=== PATIENT | female | born 1945 ===

== ENCOUNTER 2023-09-18 05:12 | Day surgery (SDC) | payer OTHER ==
[2023-09-16 13:31] LABS: URINE APPEARANCE Clear; URINE BILIRRUBIN Negative (NEGATIVE); URINE BLOOD Negative; URINE COLOR Yellow; URINE GLUCOSE Negative (NEGATIVE); URINE LEUKOCYTE Negative; URINE NITRATE Negative; URINE PROTEIN Negative (NEGATIVE); URINE UROBILINOGEN 0.2 E.U./dl
[2023-09-16 13:35] LABS: URINE EPITHELIAL CELLS 2.2 uL (0.0-38.8); URINE RBC 3.5 uL (0.0-20.8)
[2023-09-16 13:39] LABS: HEMATOCRIT 40.5 % (36.0-45.00); HEMOGLOBIN 13.2 g/dL (12.0-15.00); MEAN CORPUSCULAR HEMOGLOBIN 27.7 pg (27.00-32.0); MEAN CORPUSCULAR HGB CONC 32.6 g/dl (32.0-36.0); PLATELET COUNT 237 K/uL (150-450); RED BLOOD COUNT 4.77 M/uL (4.00-6.00); RED CELL DISTRIBUTION WIDTH 13.1 % (11.5-14.5)
[2023-09-16 14:01] LABS: URINE BACTERIA 0 uL (0.0-1933); URINE WBC 0.3 uL (0.0-23.2)
[2023-09-16 14:06] LABS: ALBUMIN 4.2 gm/dL (3.4-5.0); BILIRUBIN TOTAL 0.5 mg/dL (0.3-1.2); BILIRUBIN,CONJUGATED 0.11 mg/dL (0.0-0.2); BILIRUBIN,UNCONJUGATED 0.39 mg/dL (0.0-0.6); CALCIUM 10.5 mg/dL (8.5-10.1); CREATININE SERUM 0.84 mg/dL (0.55-1.02); GFR 65.4; POTASSIUM 4.31 mEq/L (3.5-5.1); TOTAL PROTEIN 8.4 gm/dL (6.4-8.2)
[2023-09-16 14:08] LABS: INR 0.98; PARTIAL THROMBOPLASTIN TIME 26.5 SECONDS (22.0-34.0); PROTHROMBIN TIME 10.3 SECONDS (9.0-11.5)
[~2023-09-18] VITALS: Ht 165.1 cm; Wt 49.9 kg
[~2023-09-18 05:12] MED LIST: NEXIUM40 MG/PACK PO
[2023-09-18] MEDS ORDERED: PERCOCET 5-3251 EACH PO (10:03)
[2023-09-18] MEDS ORDERED: COLACE100 MG PO (10:04)
[2023-09-18] MEDS ORDERED: NEURONTIN300 MG PO (10:04)
[2023-09-18 12:23] LABS: ABG PH 7.363 (7.35-7.45); ABG PO2 372.4 mmHg (80-100); ABG pCO2 41.6 mmHg (35-45); BASE EXCESS -2.1 mmol/l; BICARBONATE 23.2 mmol/l (23-25); SaO2 99.9 %; Tco2 24.4 mmol/l
[2023-09-18 12:24] LABS: allen test SATISFACTORY; o2 100 %; puncture site RADIAL RIGHT
[2023-09-18 18:28] LABS: ABG PH 7.348 (7.35-7.45); ABG PO2 294.8 mmHg (80-100); ABG pCO2 48.3 mmHg (35-45); BASE EXCESS -0.3 mmol/l; SaO2 99.9 %
[2023-09-18 18:29] LABS: BICARBONATE 25.9 mmol/l (23-25); Tco2 27.4 mmol/l; allen test SATISFACTORY; o2 40 %; puncture site RADIAL RIGHT
== END 2023-09-18 18:15 | disposition home or self-care (01) ==
LOC: CIR.AMB 05:12
PROVIDERS: Anesthesiology Pain Medicine; ATTEND Surgery
DX: K40.20 Bilateral inguinal hernia, without obstruction or gangrene, not specified as recurrent (principal); Z88.6 Allergy status to analgesic agent; Z20.822 Contact with and (suspected) exposure to COVID-19
CPT/HCPCS: 49650; C1781